=== PATIENT | female | born 1955 | race Caucasian/White ===

== ENCOUNTER → 2021-01-16 | Day surgery (SDC) | payer SELFPAY ==
[~2021-01-16] MED LIST: diphenhydrAMINE 50 MG/ML VIAL ONE
== END ==
LOC: CSHSDC/OP 11:09
PROVIDERS: ATTEND Family Medicine
DX: U07.1 COVID-19 (principal); Z23 Encounter for immunization
CPT/HCPCS: 96365; 96374; J1200

== ENCOUNTER 2021-01-19 14:17 | Inpatient (IN) | payer SELFPAY ==
[2021-01-19 15:10] LABS: #Monocytes 0.5 10x3/uL (0.0-1.1); #Neutrophils 5.3 10x3/uL (1.5-8.4); %Basophils 0.4 % (0.0-2.0); %Lymphocytes 20.6 % (18.0-47.0); %Monocytes 6.6 % (0.0-10.0); %Neutrophils 70.7 % (40.0-75.0); Hemoglobin 14.4 g/dL (12.0-15.5); Mean Corpuscular HGB CONC 32.9 g/dL (32.0-36.0); Mean Corpuscular Hemoglobin 29.4 pg (27.0-33.0); Mean Corpuscular Volume 89.4 fl (81.6-98.3); Mean Platelet Volume 8.8 fl (7.4-10.4); Platelet Count 337 10x3/uL (150-450); RBC Distribution Width 12.5 % (11.5-14.5); White Blood Cell (WBC) Count 7.6 10x3/uL (3.5-10.5)
[2021-01-19 15:19] LABS: ALT (SGPT) 48 U/L (8-55); AST (SGOT) 39 U/L (5-34); Albumin 4.2 g/dL (3.4-4.8); Alkaline Phosphatase 97 U/L (40-110); Anion Gap 16 mmol/L (10-20); BUN (Urea Nitrogen) 11 mg/dL (9.8-20.1); Bilirubin, Total 0.6 mg/dL (0.2-1.2); Calc. Creatinine Clearance 0 mL/min (70-130); Calcium 9.7 mg/dL (7.8-10.44); Carbon Dioxide 27 mmol/L (23-31); Chloride 103 mmol/L (98-107); Globulin 3.6 g/dL (2.4-3.5); Glucose 143 mg/dL (80-115); Potassium 3.7 mmol/L (3.5-5.1); Protein, Total 7.8 g/dL (5.8-8.1); Sodium 142 mmol/L (136-145)
[2021-01-19] MEDS ORDERED: Ondansetron PF 4 MG/2 ML Vial ONE (16:13)
[2021-01-19 16:19] LABS: CRP (Inflammatory) 3.38 mg/dL (= or < 0.5)
[2021-01-19] MEDS ORDERED: Dexamethasone 10 MG/ML VIAL ONE (17:51)
[2021-01-19] MEDS ORDERED: Benzonatate 100 MG CAP PO PRN (18:13)
[2021-01-19] MEDS ORDERED: Labetalol HCl 100 MG/20 ML VIAL SLOW IVP PRN (18:13)
[2021-01-19] MEDS ORDERED: hydrALAZINE 20 MG/ML VIAL SLOW IVP PRN (18:13)
[2021-01-19] MEDS ORDERED: Dextrose 50% Abboject 50 ML SYRINGE SLOW IVP PRN (18:13)
[2021-01-19] MEDS ORDERED: Ondansetron ODT 4 MG TAB PO PRN (18:13)
[2021-01-19] MEDS ORDERED: Melatonin 3 MG TAB PO PRN (18:13)
[2021-01-19] MEDS ORDERED: HumaLOG 300 UNITS/3 ML VIAL SC PRN ×2 (18:13)
[2021-01-19] MEDS ORDERED: Loperamide HCl 2 MG CAP PO PRN ×2 (18:13)
[2021-01-19] MEDS ORDERED: Ibuprofen 200 MG TAB PO PRN (18:13)
[2021-01-19] MEDS ORDERED: Dextrose 5% in Water 1,000 ML IV PRN (18:13)
[2021-01-19] MEDS ORDERED: Ondansetron PF 4 MG/2 ML Vial IVP PRN (18:13)
[2021-01-19] MEDS ORDERED: Promethazine 25 MG TAB PO PRN (18:13)
[2021-01-19 20:41] VITALS: BMI 29.0
[2021-01-20 05:13] LABS: #Monocytes 0.5 10x3/uL (0.0-1.1); #Neutrophils 4.4 10x3/uL (1.5-8.4); %Basophils 0.5 % (0.0-2.0); %Lymphocytes 17.3 % (18.0-47.0); %Monocytes 7.4 % (0.0-10.0); %Neutrophils 72.2 % (40.0-75.0); Hemoglobin 12.8 g/dL (12.0-15.5); Mean Corpuscular HGB CONC 32.5 g/dL (32.0-36.0); Mean Corpuscular Hemoglobin 29.4 pg (27.0-33.0); Mean Corpuscular Volume 90.4 fl (81.6-98.3); Mean Platelet Volume 8.6 fl (7.4-10.4); Platelet Count 330 10x3/uL (150-450); RBC Distribution Width 12.4 % (11.5-14.5); Red Blood Cell (RBC) Count 4.36 10x6/uL (3.90-5.03); White Blood Cell (WBC) Count 6.1 10x3/uL (3.5-10.5)
[2021-01-20 05:16] LABS: Anion Gap 13 mmol/L (10-20); BUN (Urea Nitrogen) 9 mg/dL (9.8-20.1); Calc. Creatinine Clearance 109 mL/min (70-130); Calcium 9.3 mg/dL (7.8-10.44); Carbon Dioxide 24 mmol/L (23-31); Chloride 108 mmol/L (98-107); Glucose 135 mg/dL (80-115); Potassium 4.1 mmol/L (3.5-5.1); Sodium 141 mmol/L (136-145)
[2021-01-20] MEDS ORDERED: Losartan Potassium 50 MG TAB PO SCH (12:15)
[2021-01-20] MEDS: Ascorbic Acid 500 mg Chewable Tablet PO SCH (20:34)
[2021-01-20] MEDS: Acetaminophen 500 MG TAB PO PRN (20:35)
[2021-01-20] MEDS: Dexamethasone 4 mg/ml Vial SLOW IVP SCH (20:35)
[2021-01-20] MEDS: Cholecalciferol 1,000 UNITS (25 MCG) TAB PO SCH (20:35)
[2021-01-20] MEDS: Atorvastatin Calcium 10 MG TAB PO SCH (20:35)
[2021-01-20] MEDS: Zinc Sulfate 220 MG CAP PO SCH (20:35)
[2021-01-21 05:10] LABS: #Basophils 0.1 10x3/uL (0.0-0.2); #Neutrophils 7.2 10x3/uL (1.5-8.4); %Basophils 0.5 % (0.0-2.0); %Eosinophils 0.4 % (0.0-6.0); %Lymphocytes 17.9 % (18.0-47.0); %Monocytes 9.7 % (0.0-10.0); %Neutrophils 69.3 % (40.0-75.0); Hemoglobin 13.3 g/dL (12.0-15.5); Mean Corpuscular HGB CONC 32.7 g/dL (32.0-36.0); Mean Corpuscular Hemoglobin 29.3 pg (27.0-33.0); Mean Corpuscular Volume 89.6 fl (81.6-98.3); Mean Platelet Volume 8.4 fl (7.4-10.4); Platelet Count 389 10x3/uL (150-450); RBC Distribution Width 12.4 % (11.5-14.5); Red Blood Cell (RBC) Count 4.54 10x6/uL (3.90-5.03); White Blood Cell (WBC) Count 10.3 10x3/uL (3.5-10.5)
[2021-01-21 05:43] LABS: Anion Gap 16 mmol/L (10-20); BUN (Urea Nitrogen) 12 mg/dL (9.8-20.1); CRP (Inflammatory) 1.53 mg/dL (= or < 0.5); Calc. Creatinine Clearance 106 mL/min (70-130); Calcium 9.4 mg/dL (7.8-10.44); Carbon Dioxide 23 mmol/L (23-31); Chloride 107 mmol/L (98-107); Glucose 126 mg/dL (80-115); Potassium 3.7 mmol/L (3.5-5.1); Sodium 142 mmol/L (136-145)
[2021-01-21] MEDS: Dexamethasone 4 mg/ml Vial SLOW IVP SCH (09:23)
[2021-01-21] MEDS: Cholecalciferol 1,000 UNITS (25 MCG) TAB PO SCH (09:23)
[2021-01-21] MEDS: Zinc Sulfate 220 MG CAP PO SCH (09:23)
[2021-01-21] MEDS: metFORMIN 500 MG TAB PO SCH (09:23)
[2021-01-21] MEDS: Ascorbic Acid 500 mg Chewable Tablet PO SCH (09:23)
[2021-01-21] MEDS: Losartan Potassium 50 MG TAB PO SCH (09:24)
[2021-01-21] MEDS: Atorvastatin Calcium 10 MG TAB PO SCH (21:05)
[2021-01-21] MEDS: Acetaminophen 500 MG TAB PO PRN (21:44)
[2021-01-22 06:02] LABS: #Basophils 0.1 10x3/uL (0.0-0.2); #Neutrophils 7.4 10x3/uL (1.5-8.4); %Basophils 0.5 % (0.0-2.0); %Eosinophils 0.4 % (0.0-6.0); %Lymphocytes 14.1 % (18.0-47.0); %Monocytes 9.6 % (0.0-10.0); %Neutrophils 71.6 % (40.0-75.0); Hemoglobin 12.7 g/dL (12.0-15.5); Mean Corpuscular HGB CONC 32.8 g/dL (32.0-36.0); Mean Corpuscular Hemoglobin 28.9 pg (27.0-33.0); Mean Platelet Volume 8.4 fl (7.4-10.4); Platelet Count 466 10x3/uL (150-450); RBC Distribution Width 12.3 % (11.5-14.5); White Blood Cell (WBC) Count 10.4 10x3/uL (3.5-10.5)
[2021-01-22 06:05] LABS: Anion Gap 14 mmol/L (10-20); BUN (Urea Nitrogen) 11 mg/dL (9.8-20.1); Calc. Creatinine Clearance 114 mL/min (70-130); Calcium 9.7 mg/dL (7.8-10.44); Carbon Dioxide 23 mmol/L (23-31); Chloride 107 mmol/L (98-107); Glucose 124 mg/dL (80-115); Potassium 3.8 mmol/L (3.5-5.1); Sodium 140 mmol/L (136-145)
[2021-01-22] MEDS: metFORMIN 500 MG TAB PO SCH (09:05)
[2021-01-22] MEDS: Ascorbic Acid 500 mg Chewable Tablet PO SCH (09:05)
[2021-01-22] MEDS: Cholecalciferol 1,000 UNITS (25 MCG) TAB PO SCH (09:05)
[2021-01-22] MEDS: Losartan Potassium 50 MG TAB PO SCH (09:07)
[2021-01-22] MEDS: Dexamethasone 4 mg/ml Vial SLOW IVP SCH (09:07)
[2021-01-22] MEDS: Zinc Sulfate 220 MG CAP PO SCH (09:07)
[2021-01-22 12:38] VITALS: BP 134/72; TEMP 98.2
== END 2021-01-22 17:15 | disposition home or self-care (01) | DRG 177 ==
LOC: CSHERS 14:17 → CSHTELE 20:35
PROVIDERS: ADMIT Internal Medicine; ATTEND Family Medicine
PROC: 8E0ZXY6 Isolation (ICD-10-PCS; principal; 2021-01-19)
DX: U07.1 COVID-19 (principal); J12.82 Pneumonia due to coronavirus disease 2019; J96.01 Acute respiratory failure with hypoxia; I10 Essential (primary) hypertension; E78.5 Hyperlipidemia, unspecified; E11.9 Type 2 diabetes mellitus without complications; Z79.899 Other long term (current) drug therapy; Z90.49 Acquired absence of other specified parts of digestive tract; Z82.49 Family history of ischemic heart disease and other diseases of the circulatory system; Z79.84 Long term (current) use of oral hypoglycemic drugs
CPT/HCPCS: 36415; 36416; 71045; 80048; 80053; 82728; 83690; 84484; 85025; 85379; 86140; 93005; 94760; 96374; 96375; J1100; J1815; J2405